=== PATIENT | male | born 2005 | race Hispanic/Latino ===

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

== ENCOUNTER 2024-02-17 15:20 | Emergency (ER) | payer BC ==
[2024-02-17] MEDS ORDERED: ACETAMINOPHEN 500 MG TAB ONE (16:30)
[2024-02-17] MEDS ORDERED: ALBUTEROL 2.5 MG/3 ML NEB SOL ONE (16:35)
[2024-02-17] MEDS ORDERED: IPRATROPIUM BROM 0.5MG/2.5ML ONE (16:36)
[2024-02-17 16:40] LABS: SARS-CoV-2 Antigen CONTROL BLUE LINE VIS/BG OK; SARS-CoV-2 Antigen Rapid Res Negative (Negative)
--- NOTE | 2024-02-17 17:14 | RAD REPORT ---
EXAM DESCRIPTION: RAD - Chest Single View - 02/17/2024 4:50 pm CLINICAL HISTORY: Cough;Dyspnea COMPARISON: Chest Pa And Lat (2 Views) dated 09/16/2021 FINDINGS: Lines: None. Lungs: No evidence of edema or pneumonia. Pleural: No significant pleural effusions or pneumothorax. Cardiac: The heart size is within normal limits. Mediastinum: Within normal limits. Bones: No acute fractures. Other: None IMPRESSION: No acute cardiopulmonary disease.
--- NOTE | 2024-02-17 17:21 | EDPHYS ---
Physician Documentation [facility] Name: Jayy Hooper III Age: 18 yrs Sex: Male : 2005 Arrival Date: 02/17/2024 Time: 15:20 Bed 11 Private MD: ED Physician Harmeet Grover HPI: 02/16 15:49 This 18 yrs old Male presents to ER via Ambulatory with complaints of Cough, Fever, jh7 Weakness. 15:49 18-year-old male with no past medical history presents to the ER for cough, fever, body jh7 aches, and nausea since yesterday. The patient reports that he was sent home from work for this and stated that he had been working around white magnesium powder at work. Denies shortness of breath.. Historical: - Allergies: 15:26 No Known Allergies; ll1 - Home Meds: 15:48 None [Active]; ll1 - PMHx: 15:48 None; ll1 - PSHx: 15:26 orchiopexy; ll1 - Immunization history:: Adult Immunizations up to date. - Infectious Disease History:: Denies. - Social history:: Smoking status: Patient denies any tobacco usage or history of. ROS: 15:49 Constitutional: Per HPI jh7 Exam: 15:49 Constitutional: This is a well developed, well nourished patient who is awake, alert, jh7 and in no acute distress. Head/Face: Normocephalic, atraumatic. ENT: Nares patent. No nasal discharge, no septal abnormalities noted. Tympanic membranes are normal and external auditory canals are clear. Oropharynx with no redness, swelling, or masses, exudates, or evidence of obstruction, uvula midline. Mucous membranes moist. Neck: Trachea midline, no thyromegaly or masses palpated, and no cervical lymphadenopathy. Supple, full range of motion without nuchal rigidity, or vertebral point tenderness. No Meningismus. Cardiovascular: Regular rate and rhythm with a normal S1 and S2. No gallops, murmurs, or rubs. Normal PMI, no JVD. No pulse deficits. Abdomen/GI: Soft, non-tender, with normal bowel sounds. No distension or tympany. No guarding or rebound. No evidence of tenderness throughout. Skin: Warm, dry with normal turgor. Normal color with no rashes, no lesions, and no evidence of cellulitis. MS/ Extremity: Pulses equal, no cyanosis. Neurovascular intact. Full, normal range of motion. Neuro: Awake and alert, GCS 15, oriented to person, place, time, and situation. Motor strength 5/5 in all extremities. Sensory grossly intact. Normal gait. 15:49 Respiratory: the patient does not display signs of respiratory distress, Respirations: normal, Breath sounds: are clear throughout, Respiratory rate: 18 Coughing on exam, Vital Signs: 15:49 BP 124 / 85; Pulse 110; Resp 18; Temp 99; Pulse Ox 100% on R/A; Pain 7/10; ll1 17:42 BP 118 / 79; Pulse 79; Resp 20; Temp 98.4(O); Pulse Ox 99% on R/A; Pain 0/10; ld2 15:49 Pain Scale: Adult ll1 17:42 Pain Scale: Adult ld2 [place] Coma Score: 17:42 Eye Response: spontaneous(4). Motor Response: obeys commands(6). Verbal Response: ld2 oriented(5). Total: 15. MDM: 15:37 Patient medically screened. [facility] 17:25 Differential Diagnosis: Bronchitis Influenza Upper Respiratory Infection Asthma [facility] Exacerbation Viral Syndrome Pneumonia. Data reviewed: vital signs, nurses notes, lab test result(s), radiologic studies, plain films. I considered the following discharge prescriptions or medication management in the emergency department Medications were administered in the Emergency Department. See MAR. Independent interpretation of the following test(s) in the Emergency Department X-Ray: My interpretation is No acute findings. Counseling: I had a detailed discussion with the patient and/or guardian regarding the historical points, exam findings, and any diagnostic results supporting the discharge/admit diagnosis, to return to the emergency department if symptoms worsen or persist or if there are any questions or concerns that arise at home. Response to treatment: the patient's symptoms have markedly improved after treatment. 02/16 15:53 Order name: SARS RAPID; Complete Time: 16:54 [facility] 02/16 15:53 Order name: RSV; Complete Time: 16:54 [facility] 02/16 15:53 Order name: Flu; Complete Time: 16:54 [facility] 02/16 15:53 Order name: XRAY Chest (1 view); Complete Time: 17:20 jh7 Administered Medications: 16:33 Drug: Acetaminophen PO 1000 mg PO once Route: PO; ld2 16:40 Drug: DuoNeb Nebulize (2.5 mg - 0.5 mg) 3 ml Nebulizer once Route: Nebulizer; ld2 Disposition: 19:36 Co-signature as Attending Physician, Harmeet Grover MD I reviewed the patient's care rt provided by the Advanced Practice Provider and agree with the diagnosis and treatment plan. Disposition Summary: 02/17/24 17:21 Discharge Ordered Notes: Location: Home [facility] Problem: new [facility] Symptoms: are unchanged [facility] Condition: Stable [facility] Diagnosis - Acute upper respiratory infection, unspecified [facility] Followup: [facility] - With: Private Physician - When: 2 - 3 days - Reason: Recheck today's complaints Discharge Instructions: - Discharge Summary Sheet [facility] - Upper Respiratory Infection, Adult [facility] - Viral Respiratory Infection [facility] Forms: - Work release form ph - Medication Reconciliation Form [facility] - Thank You Letter [facility] - Antibiotic Education [facility] - Patient Portal Instructions [facility] - Leadership Thank You Letter [facility] Prescriptions: - albuterol sulfate 90 mcg/actuation Inhalation HFA Aerosol Inhaler - inhale 1 puff INHALATION route every 4 to 6 hours As needed; 1 Each; Refills: [facility] 0, Product Selection Permitted - Tessalon Perles 100 mg Oral Capsule - take 1 capsule ORAL route every 8 hours As needed; 15 capsule; Refills: 0, jh7 Product Selection Permitted Signatures: Dispatcher [employer] Robert Jarvis RN RN ll1 Fatmata Addison, STERILE INSTRUMENT TECHNICIAN [place] [id number] Harmeet Grover MD MD rt Charlotte Andrade RN RN ld2
--- NOTE | 2024-02-17 17:21 | ER ---
Nurse's Notes [facility] Name: Jayy Hooper III Age: 18 yrs Sex: Male : 2005 Arrival Date: 02/17/2024 Time: 15:20 Bed 11 Private MD: Diagnosis: Acute upper respiratory infection, unspecified Presentation: 02/16 15:49 Chief complaint: Patient states: Cough started yesterday. Now has cough, fever, nausea, ll1 body aches, fatigued easily. Coronavirus screen: Client denies travel out of the [place] in the last 14 days. cough unrelated to allergies, fatigue, fever, headache, muscle pain, nausea, Client presents with at least one sign or symptom that may indicate coronavirus-19. Standard/surgical mask placed on the client. Ebola Screen: Patient denies travel to an Ebola-affected area in the 21 days before illness onset. No acute neurological deficit is noted. Initial Sepsis Screen: Does the patient meet any 2 criteria? No. Patient's initial sepsis screen is negative. Does the patient have a suspected source of infection? No. Patient's initial sepsis screen is negative. Risk Assessment: Do you want to hurt yourself or someone else? Patient reports no desire to harm self or others. Onset of symptoms was February 16, 2024. 15:49 Method Of Arrival: Ambulatory ll1 15:49 Acuity: MADYSON 4 ll1 Triage Assessment: 15:50 General: Appears uncomfortable, ill, Behavior is calm, cooperative, appropriate for ll1 age. General: Reports fever for feeling ill for fatigue for. Neuro: Reports headache weakness. Respiratory: Reports cough that is. Stroke Activation: Symptom onset > 6 hours Physician: Stroke Attending; Name: ; Notified At: ; Arrived At: Physician: Chief Stroke Resident; Name: ; Notified At: ; Arrived At: Physician: Stroke Resident; Name: ; Notified At: ; Arrived At: Physician: ED Attending; Name: ; Notified At: ; Arrived At: Physician: ED Resident; Name: ; Notified At: ; Arrived At: Historical: - Allergies: 15:26 No Known Allergies; ll1 - Home Meds: 15:48 None [Active]; ll1 - PMHx: 15:48 None; ll1 - PSHx: 15:26 orchiopexy; ll1 - Immunization history:: Adult Immunizations up to date. - Infectious Disease History:: Denies. - Social history:: Smoking status: Patient denies any tobacco usage or history of. Assessment: 17:42 Pain: Denies pain. Neuro: No deficits noted. Level of Consciousness is awake, alert, ld2 obeys commands, Oriented to person, place, time, situation. Cardiovascular: No deficits noted. Respiratory: Reports cough that is non-productive, dry, persistent. GI: No deficits noted. No signs and/or symptoms were reported involving the gastrointestinal system. : No deficits noted. No signs and/or symptoms were reported regarding the genitourinary system. Musculoskeletal: No deficits noted. No signs and/or symptoms reported regarding the musculoskeletal system. Vital Signs: 15:49 BP 124 / 85; Pulse 110; Resp 18; Temp 99; Pulse Ox 100% on R/A; Pain 7/10; ll1 17:42 BP 118 / 79; Pulse 79; Resp 20; Temp 98.4(O); Pulse Ox 99% on R/A; Pain 0/10; ld2 15:49 Pain Scale: Adult ll1 17:42 Pain Scale: Adult ld2 [place] Coma Score: 17:42 Eye Response: spontaneous(4). Motor Response: obeys commands(6). Verbal Response: ld2 oriented(5). Total: 15. ED Course: 15:23 Patient arrived in ED. mr 15:26 Arm band placed on. 1 15:37 Fatmata Addison FNP is [facility]. [facility] 15:37 Harmeet Grover MD is Attending Physician. [facility] 15:52 Triage completed. ll1 15:55 RSV Sent. ll1 15:55 Flu Sent. ll1 15:55 SARS RAPID Sent. ll1 15:56 COVID swab sent to lab. Flu and/or RSV swab sent to lab. ll1 15:56 SARS RAPID Sent. ll1 15:56 RSV Sent. ll1 15:56 Flu Sent. ll1 16:25 Charlotte Andrade, RN is Primary Nurse. ld2 16:28 Flu Sent. ld2 16:28 RSV Sent. ld2 16:28 SARS RAPID Sent. ld2 16:53 XRAY Chest (1 view) In Process Unspecified. EDMS Administered Medications: 16:33 Drug: Acetaminophen PO 1000 mg PO once Route: PO; ld2 16:40 Drug: DuoNeb Nebulize (2.5 mg - 0.5 mg) 3 ml Nebulizer once Route: Nebulizer; ld2 Outcome: 17:21 Discharge ordered by MD. latif 17:43 Patient left the ED. ld2 Signatures: Dispatcher [employer] EDDE Barbara Segura, Reg Reg mr Robert Dorado, [place] RN 1 Fatmata Addison FNP BOILER/CHILLER TECHNICIAN 7 Charlotte Andrade RN RN ld2
[2024-02-17 17:52] VITALS: BP 118/79; TEMP 98.4; O2SAT 99
== END 2024-02-17 17:43 | disposition home or self-care (01) ==
LOC: ER 15:20
DX: J06.9 Acute upper respiratory infection, unspecified (principal); Z11.52 Encounter for screening for COVID-19
CPT/HCPCS: 36415; 87807; 87804 ×2; 71045; 94640; 99284; 87811; J7613; J7644